=== PATIENT | female | born 1965 | race Caucasian/White ===

== ENCOUNTER 2018-07-19 16:05 | Day surgery (SDC) | payer BC ==
[~2018-07-19] VITALS: Ht 154.9 cm; Wt 59.1 kg
[2018-07-19] VITALS (9 sets, daily range): BP systolic 116–160; BP diastolic 67–90; PULSE 57–77; TEMP 98–98.6
[~2018-07-19 16:05] MED LIST: SEASONIQUE1 TAB PO
[2018-07-19] MEDS ORDERED: PRILOSEC10 MG PO (16:44)
[2018-07-19] MEDS ORDERED: NAPROSYN500 MG PO (16:45)
[2018-07-19] MEDS ORDERED: MAXALT MLT10 MG/TAB PO (16:45)
[2018-07-19] MEDS ORDERED: TYLENOL W/COD1 UDTAB PO (16:45)
[2018-07-19] MEDS ORDERED: TYLENOL 500MG500 MG PO (16:46)
[2018-07-19] MEDS ORDERED: ADVIL200 MG PO (16:47)
[2018-07-20 00:29] VITALS: BP 107/61; PULSE 75; TEMP 98.4
[2018-07-20 03:40] VITALS: BP 118/60; PULSE 76; TEMP 98
[2018-07-20 07:41] VITALS: BP 116/76; PULSE 78; TEMP 98.3
[2018-07-20] MEDS ORDERED: NORCO 325 MG-51 TAB PO (08:13)
== END 2018-07-20 13:35 | disposition home or self-care (01) ==
LOC: SDCO 16:05 → MEDICAL 22:06 → SDCO 07-20 13:35
DX: K80.12 Calculus of gallbladder with acute and chronic cholecystitis without obstruction (principal); G43.909 Migraine, unspecified, not intractable, without status migrainosus; K21.9 Gastro-esophageal reflux disease without esophagitis; Z80.41 Family history of malignant neoplasm of ovary; J45.909 Unspecified asthma, uncomplicated
CPT/HCPCS: OP; J0690; J1100; J1885; J2270; J2405; J2704; J2710; J3010; J7120

== ENCOUNTER → 2018-10-09 | Outpatient (CLI) | payer BC ==
[~2018-10-09] MED LIST changes: +ADVIL200 MG PO; +MAXALT MLT10 MG/TAB PO; +NAPROSYN500 MG PO; +NORCO 325 MG-51 TAB PO; +PRILOSEC10 MG PO; +TYLENOL 500MG500 MG PO; +TYLENOL W/COD1 UDTAB PO
== END ==
LOC: MC.RAD 10:40
DX: Z12.31 Encounter for screening mammogram for malignant neoplasm of breast (principal)

== ENCOUNTER → 2019-10-16 | Outpatient (CLI) | payer BC | LOC: MC.RAD 14:27 | DX: Z12.31 Encounter for screening mammogram for malignant neoplasm of breast (principal) ==

== ENCOUNTER → 2020-12-07 | Outpatient (CLI) | payer BC | LOC: MC.RAD 10:30 | DX: Z12.31 Encounter for screening mammogram for malignant neoplasm of breast (principal) ==

== ENCOUNTER → 2022-07-28 | Outpatient (CLI) | payer BC | LOC: MC.RAD 05-30 09:30 | DX: Z12.31 Encounter for screening mammogram for malignant neoplasm of breast (principal) ==